=== PATIENT | female | born 2000 | race Two or more races ===

== ENCOUNTER 2023-10-10 16:09 | Inpatient (IN) ==
[2023-10-10 16:30] LABS: BILIRUBIN,URINE NEGATIVE (NEGATIVE); BLOOD/HEMOGLOBIN,URINE 5+ (NEGATIVE); GLUCOSE, URINE NEGATIVE (NEGATIVE); KETONES,URINE NEGATIVE (NEGATIVE); LEUKOCYTE ESTERASE ,URINE 1+ (NEGATIVE); NITRITES,URINE NEGATIVE (NEGATIVE); PROTEIN,URINE 1+ (NEGATIVE); UROBILINOGEN,URINE NORMAL (NORMAL)
[2023-10-10 16:45] LABS: AMNISURE ROM TEST NO MEMBRANES RUPTURE (NO RUPTURE)
[2023-10-10 16:47] LABS: APPEARANCE,URINE SLIGHTLY HAZY (CLEAR); BACTERIA,URINE TRACE /HPF (NEGATIVE); COLOR,URINE YELLOW (YELLOW); SQUAMOUS EPITHELIAL CELL,UR FEW /HPF (NEGATIVE)
[2023-10-10] MEDS ORDERED: ULTANE GAS IN ONE (17:27)
[2023-10-10] MEDS ORDERED: ZOFRAN INJ 4 MG VIAL IVP PRN (17:29)
[2023-10-10] MEDS ORDERED: PITOCIN IVP ONE (17:29)
[2023-10-10] MEDS ORDERED: REGLAN INJ 10 MG VIAL IVP PRN (17:29)
[2023-10-10] MEDS: D5 1/2 NS 1,000 ML 1,000 ML IV SCH (17:40)
[2023-10-10] MEDS: OXYTOCIN 20 UNIT/1,000 ML-NS 20 UNIT/1,000 ML PLAST..BAG IV PRN (17:55)
[2023-10-10 17:58] LABS: BASOPHILS # (AUTO) 0.1 X10^3/uL (0.0-0.1); BASOPHILS % (AUTO) 0.6 % (0.2-1.0); EOSINOPHILS % (AUTO) 0.3 % (0.9-2.9); HEMATOCRIT 36.3 % (36.0-47.0); HEMOGLOBIN 12.3 g/dL (12.0-16.0); LYMPHOCYTES # (AUTO) 2.2 X10^3/uL (1.3-2.9); MEAN CORPUSCULAR HEMOGLOBIN 30.9 pg (27.0-34.0); MEAN CORPUSCULAR HGB CONC 33.8 g/dL (33.0-35.0); MEAN CORPUSCULAR VOLUME 91.5 fL (80.0-100.0); MEAN PLATELET VOLUME 10.7 fL (7.4-11.0); MONOCYTES # (AUTO) 0.8 x10^3/uL (0.3-0.8); MONOCYTES % (AUTO) 6.6 % (0.0-13.0); NEUTROPHILS # (AUTO) 8.5 x10^3/uL (2.2-4.8); NEUTROPHILS % (AUTO) 73.5 % (42.0-75.0); PLATELET COUNT 174 X10^3/uL (150.0-450.0); RED BLOOD COUNT 3.97 X10^6/uL (3.5-5.4); RED CELL DISTRIBUTION WIDTH 13.6 % (11.6-16.5); WHITE BLOOD COUNT 11.6 X10^3/uL (3.6-10.0)
[2023-10-10 18:04] LABS: BLOOD UREA NITROGEN 6 mg/dL (7-18); CALCIUM 8.8 mg/dL (8.5-10.1); CARBON DIOXIDE 21.8 mmol/L (21-32); CHLORIDE 102 mmol/L (98-107); CREATININE 0.77 mg/dL (0.55-1.02); GLUCOSE 82 mg/dL (65-99); POTASSIUM 3.9 mmol/L (3.5-5.1); SODIUM 134 mmol/L (136-145); eGFR NON BLACK RACES > 60 (>60)
[2023-10-10 18:35] LABS: RAPID PLASMA REAGIN NONREACTIVE (NONREACTIVE)
[2023-10-10] MEDS: PITOCIN ONE (18:44)
[2023-10-10] MEDS: D5 1/2 NS 1,000 ML 1,000 ML IV ONE (18:44)
[2023-10-10] MEDS: NUBAIN INJ 10 MG AMP ONE (22:51)
[2023-10-10] MEDS: NUBAIN INJ 20 MG AMP IVP PRN (22:52)
[2023-10-11] MEDS: D5 1/2 NS 1,000 ML 1,000 ML IV ONE (01:50)
[2023-10-11] MEDS: NUBAIN INJ 10 MG AMP ONE (02:57)
[2023-10-11] MEDS: NOZIN NASAL SANITIZER TP ONE (05:50)
[2023-10-11] MEDS: LR 1,000 ML IV 1,000 ML IV ONE ×2 (05:50→06:45)
[2023-10-11] MEDS: DILAUDID INJ ONE (05:51)
[2023-10-11] MEDS: NS 100 ML IV 100 ML ONE (05:59)
[2023-10-11] MEDS: ANCEF VIAL 1 GRAM ONE (05:59)
[2023-10-11] MEDS: PEPCID 20 MG VIAL ONE (06:01)
[2023-10-11] MEDS: ZOFRAN INJ 4 MG VIAL ONE (06:01)
[2023-10-11] MEDS: DIPRIVAN VIAL 20 ML ONE (06:23)
[2023-10-11] MEDS: MARCAINE SPINAL ONE (06:23)
[2023-10-11] MEDS: ZEMURON 100 MG VIAL ONE (06:23)
[2023-10-11] MEDS: XYLOCAINE 2 % (PLAIN) ONE (06:23)
[2023-10-11] MEDS: PITOCIN ONE ×2 (06:33)
[2023-10-11] MEDS: HEMABATE IM ONE (06:55)
[2023-10-11] MEDS: VERSED ONE (07:05)
[2023-10-11] MEDS ORDERED: MOTRIN TAB 800 MG PO PRN (07:14)
[2023-10-11] MEDS ORDERED: BENADRYL INJ 50 MG VIAL IVP PRN (07:20)
[2023-10-11] MEDS ORDERED: ZOFRAN INJ 4 MG VIAL IVP PRN ×2 (07:20→14:25)
[2023-10-11] MEDS ORDERED: DILAUDID INJ IVP PRN (07:20)
[2023-10-11] MEDS ORDERED: MORPHINE SULFATE INJ 4 MG IM ONE (07:58)
[2023-10-11] MEDS ORDERED: NARCAN INJ IVP PRN ×2 (07:59)
[2023-10-11] MEDS ORDERED: MYLICON TAB 80 MG CHEW PO PRN (07:59)
[2023-10-11] MEDS ORDERED: PERCOCET TAB 5/325 MG PO PRN (07:59)
[2023-10-11] MEDS ORDERED: ZOFRAN INJ 4 MG VIAL IVP SCH (07:59)
[2023-10-11] MEDS: OXYTOCIN 20 UNIT/1,000 ML-NS 20 UNIT/1,000 ML PLAST..BAG IV SCH (08:11)
[2023-10-11] MEDS: TORADOL 30 MG VIAL IVP PRN (08:13)
[2023-10-11] MEDS: MORPHINE SULFATE INJ 4 MG IM PRN (08:30)
[2023-10-11] MEDS: METHERGINE IM PRN (08:50)
[2023-10-11] MEDS: PERCOCET TAB 5/325 MG PO PRN (08:50)
[2023-10-11] MEDS: NS 100 ML IV 100 ML with VENOFER 400 MG IV NR (10:18)
[2023-10-11] MEDS: PRENATAL PLUS PO SCH (14:28)
[2023-10-11] MEDS ORDERED: ADACEL or BOOSTRIX TDaP VACCINE IM ONE (16:49)
[2023-10-11] MEDS: ADACEL or BOOSTRIX TDaP VACCINE IM ONE (17:05)
--- NOTE | 2023-10-11 21:13 | EKG ---
Test Reason : elevated heart rate Blood Pressure : */* mmHG Vent. Rate : 123 BPM Atrial Rate : 123 BPM P-R Int : 140 ms QRS Dur : 68 ms QT Int : 296 ms P-R-T Axes : 48 42 7 degrees QTc Int : 423 ms Sinus tachycardia Nonspecific ST and T wave abnormality Abnormal ECG No previous ECGs available Confirmed by Rob Marinelli ([id number]) on 10/12/2023 7:43:21 AM Referred By: Confirmed By: Rob Marinelli
[2023-10-11 21:54] LABS: RED CELL DISTRIBUTION WIDTH 13.8 % (11.6-16.5)
[2023-10-11 21:58] LABS: BASOPHILS % (AUTO) 0.3 % (0.2-1.0); EOSINOPHILS % (AUTO) 0.2 % (0.9-2.9); LYMPHOCYTES # (AUTO) 1.5 X10^3/uL (1.3-2.9); LYMPHOCYTES % (AUTO) 11.7 % (21.0-51.0); MEAN CORPUSCULAR HEMOGLOBIN 31.2 pg (27.0-34.0); MEAN CORPUSCULAR HGB CONC 33.8 g/dL (33.0-35.0); MEAN CORPUSCULAR VOLUME 92.3 fL (80.0-100.0); MEAN PLATELET VOLUME 10.3 fL (7.4-11.0); MONOCYTES # (AUTO) 0.9 x10^3/uL (0.3-0.8); MONOCYTES % (AUTO) 7.4 % (0.0-13.0); NEUTROPHILS % (AUTO) 80.4 % (42.0-75.0); PLATELET COUNT 149 X10^3/uL (150.0-450.0); RED BLOOD COUNT 1.96 X10^6/uL (3.5-5.4); WHITE BLOOD COUNT 12.5 X10^3/uL (3.6-10.0)
[2023-10-11 22:05] LABS: HEMATOCRIT 18.1 % (36.0-47.0); HEMOGLOBIN 6.1 g/dL (12.0-16.0)
[2023-10-11 22:09] LABS: ALANINE AMINOTRANSFERASE 14 Units/L (12-78); ALBUMIN 1.4 g/dL (3.4-5.0); ALKALINE PHOSPHATASE 220 Units/L (46-116); ASPARTATE AMINO TRANSFERASE 22 Units/L (15-37); BLOOD UREA NITROGEN 7 mg/dL (7-18); CARBON DIOXIDE 22.3 mmol/L (21-32); CHLORIDE 103 mmol/L (98-107); COR CA(FOR HYPOALB) 10.1 mg/dL (8.5-10.1); CREATININE 0.97 mg/dL (0.55-1.02); GLUCOSE 105 mg/dL (65-99); SODIUM 135 mmol/L (136-145); TOTAL PROTEIN 4.8 g/dL (6.4-8.2); eGFR NON BLACK RACES > 60 (>60)
[2023-10-11] MEDS: NS 1,000 ML IV 1,000 ML IV SCH (22:46)
--- NOTE | 2023-10-11 23:06 | NOTE.PROBC ---
Progress Note OB-C/S Date Date of Exam: 10/11/23 Subjective Data Subjective: Called by nursing to see patient due to sustained HR 130-140. Minimal bleeding. Objective Data 10/11/23 21:38 10/11/23 21:38 Objective Data: CV= RRR no MRG Lungs=CTA Bilaterally Abd=(+) BS, soft, ND, appropriately tender near incision. Bandage intact. Fundus deep, below umbilicus. Ext= No edema, NT, No Cords. Graduated Compression Stockings/Sequential Compression Devices Bilaterally. Palms and cheeks appear josé miguel. Assessment Assessment: Tachycardia. Check CBC, CMP. Make sure SCDs are worn while in bed. Discussed whether she is upset, or hurting. Appears tearful. Had some pain and was recently medicated with Percocet x 2. Plan (1) Anemia, : Plan: Transfuse 2 units pRBC, and add iron to existing PNV tomorrow. Orders given. Monitor bleeding, and Hb/Hct.
[2023-10-12] MEDS: BENADRYL CAP/TAB 25 MG PO ONE ×2 (00:03→03:54)
[2023-10-12] MEDS: NS 250 ML IV 250 ML IV ONE ×2 (00:29→16:57)
[2023-10-12] MEDS ORDERED: PERCOCET TAB 5/325 MG PO PRN (06:00)
[2023-10-12] MEDS: MOTRIN TAB 800 MG PO PRN (08:17)
[2023-10-12] MEDS: HEMOCYTE-PLUS PO SCH (08:17)
[2023-10-12 09:18] LABS: HEMATOCRIT 26.7 % (36.0-47.0)
--- NOTE | 2023-10-12 09:21 | NOTE.PROBC ---
Progress Note OB-C/S Date Date of Exam: 10/12/23 Subjective Data Subjective: Called this morning that patient only received half of second unit of pRBCs. H&H being done now. RN reports pulse 112. BP low normal. Patient without new complaints, except has not received pain meds since 1:00 am. RN gave ibuprofen recently. Has Percocet ordered. Still with abdominal pain. No SOB, no CP, minimal vaginal bleeding. Objective Data 10/11/23 21:38 10/11/23 21:38 Objective Data: female in no apparent distress. Skin warm and dry. Palms appear pink. CTA BL. Heart RRR, normal S1, S2. Abdomen: soft normal BS. Appropriate tender for POD#1. Bandage intact over incision. Fundus difficult to appreciate due to abdominal body habitus, and also her discomfort with the exam. Extremities normal, no CCE. Mood and affect appropriate to the situation. Assessment Assessment: POD#1, status post section. Post operative anemia. Transfusion of 1.5 units of pRBC done, and will make assessment, currently H&H being drawn. Plan (1) Anemia, : Plan: Assess before continuing transfusion. (2) delivery delivered: Plan: POD#1. Ambulate. DC pastor and bandage. Advance diet, activity and medications.
[2023-10-12] MEDS: CYTOTEC PO SCH (10:47)
[2023-10-12 16:09] LABS: BASOPHILS # (AUTO) 0.1 X10^3/uL (0.0-0.1); BASOPHILS % (AUTO) 0.7 % (0.2-1.0); EOSINOPHILS # (AUTO) 0.1 x10^3/uL (0.0-0.2); EOSINOPHILS % (AUTO) 0.5 % (0.9-2.9); HEMATOCRIT 27.5 % (36.0-47.0); HEMOGLOBIN 9.3 g/dL (12.0-16.0); LYMPHOCYTES # (AUTO) 2.2 X10^3/uL (1.3-2.9); LYMPHOCYTES % (AUTO) 13.9 % (21.0-51.0); MEAN CORPUSCULAR HGB CONC 33.8 g/dL (33.0-35.0); MEAN CORPUSCULAR VOLUME 88.8 fL (80.0-100.0); MEAN PLATELET VOLUME 9.7 fL (7.4-11.0); MONOCYTES # (AUTO) 0.8 x10^3/uL (0.3-0.8); MONOCYTES % (AUTO) 5.2 % (0.0-13.0); NEUTROPHILS # (AUTO) 12.6 x10^3/uL (2.2-4.8); NEUTROPHILS % (AUTO) 79.7 % (42.0-75.0); PLATELET COUNT 168 X10^3/uL (150.0-450.0); RED BLOOD COUNT 3.09 X10^6/uL (3.5-5.4); RED CELL DISTRIBUTION WIDTH 15.8 % (11.6-16.5); WHITE BLOOD COUNT 15.8 X10^3/uL (3.6-10.0)
[2023-10-12] MEDS: BETADINE SOLN ONE (16:57)
[2023-10-12] MEDS: ANCEF VIAL 1 GRAM IVP SCH (21:06)
[2023-10-12] MEDS: BENADRYL INJ 50 MG VIAL IVP PRN (21:23)
[2023-10-13 05:27] LABS: BASOPHILS % (AUTO) 0.2 % (0.2-1.0); EOSINOPHILS # (AUTO) 0.1 x10^3/uL (0.0-0.2); EOSINOPHILS % (AUTO) 0.8 % (0.9-2.9); HEMATOCRIT 25.1 % (36.0-47.0); HEMOGLOBIN 8.5 g/dL (12.0-16.0); LYMPHOCYTES % (AUTO) 18.9 % (21.0-51.0); MEAN CORPUSCULAR HEMOGLOBIN 29.9 pg (27.0-34.0); MEAN CORPUSCULAR HGB CONC 33.8 g/dL (33.0-35.0); MEAN CORPUSCULAR VOLUME 88.5 fL (80.0-100.0); MEAN PLATELET VOLUME 9.9 fL (7.4-11.0); MONOCYTES # (AUTO) 1.2 x10^3/uL (0.3-0.8); MONOCYTES % (AUTO) 7.4 % (0.0-13.0); NEUTROPHILS # (AUTO) 11.7 x10^3/uL (2.2-4.8); NEUTROPHILS % (AUTO) 72.7 % (42.0-75.0); PLATELET COUNT 176 X10^3/uL (150.0-450.0); RED BLOOD COUNT 2.84 X10^6/uL (3.5-5.4)
[2023-10-13 05:42] LABS: ALANINE AMINOTRANSFERASE < 6 Units/L (12-78); ALBUMIN 1.5 g/dL (3.4-5.0); ALKALINE PHOSPHATASE 201 Units/L (46-116); ASPARTATE AMINO TRANSFERASE 21 Units/L (15-37); BLOOD UREA NITROGEN 10 mg/dL (7-18); CARBON DIOXIDE 24.5 mmol/L (21-32); CHLORIDE 106 mmol/L (98-107); CREATININE 0.82 mg/dL (0.55-1.02); GLUCOSE 72 mg/dL (65-99); POTASSIUM 3.7 mmol/L (3.5-5.1); SODIUM 139 mmol/L (136-145); TOTAL PROTEIN 5.2 g/dL (6.4-8.2); eGFR NON BLACK RACES > 60 (>60)
[2023-10-14 05:20] LABS: BASOPHILS # (AUTO) 0.1 X10^3/uL (0.0-0.1); BASOPHILS % (AUTO) 0.5 % (0.2-1.0); EOSINOPHILS # (AUTO) 0.1 x10^3/uL (0.0-0.2); HEMATOCRIT 25.1 % (36.0-47.0); HEMOGLOBIN 8.5 g/dL (12.0-16.0); LYMPHOCYTES # (AUTO) 2.7 X10^3/uL (1.3-2.9); LYMPHOCYTES % (AUTO) 18.7 % (21.0-51.0); MEAN CORPUSCULAR HEMOGLOBIN 30.2 pg (27.0-34.0); MEAN CORPUSCULAR HGB CONC 33.7 g/dL (33.0-35.0); MEAN CORPUSCULAR VOLUME 89.7 fL (80.0-100.0); MEAN PLATELET VOLUME 9.3 fL (7.4-11.0); MONOCYTES % (AUTO) 6.7 % (0.0-13.0); NEUTROPHILS # (AUTO) 10.4 x10^3/uL (2.2-4.8); NEUTROPHILS % (AUTO) 73.1 % (42.0-75.0); PLATELET COUNT 223 X10^3/uL (150.0-450.0); RED CELL DISTRIBUTION WIDTH 15.4 % (11.6-16.5); WHITE BLOOD COUNT 14.3 X10^3/uL (3.6-10.0)
[2023-10-14 07:59] VITALS: RESP 22; O2SAT 98
[2023-10-14 11:57] VITALS: BP 123/87; PULSE 101; TEMP 98.4
--- NOTE | 2023-10-15 09:01 | NOTE.PROBC ---
Progress Note OB-C/S Date Date of Exam: 10/14/23 Subjective Data Subjective: POD #3, status post section. Doing well. Ambulating without difficulty. No SOB, No CP. Passing gas. Tolerating diet. Questions about certificate. Objective Data 10/14/23 04:40 10/13/23 05:01 Objective Data: female in NAD. CTA B/L. RRR. Abdomen: soft nontender. Incision clean, dry and intact. Extremities: no CCE. Assessment Assessment: POD#3, status post section. Anemia, status post transfusion. Stable Hct, and ready for discharge. Plan (1) Anemia, : (2) delivery delivered:
--- NOTE | 2023-10-15 09:31 | NOTE.PROBC ---
Progress Note OB-C/S Date Date of Exam: 10/13/23 Subjective Data Subjective: No new complaints. Feeling better today. Passing gas. Minimal lochia. No CP, no SOB. Objective Data 10/14/23 04:40 10/13/23 05:01 Objective Data: NAD. CTA B/L. RRR. Abdomen soft, nontender. Fundus, down. Extremities: no CCE. Incision: bandage intact. Perineum: scant blood on peripad. Assessment Assessment: POD#2 status post section. Anemia, status post transfusion. Following Hct. Plan (1) Anemia, : (2) delivery delivered:
--- NOTE | 2023-10-15 11:43 | W.DIS.FURT ---
Summary of Discharge Discharge Summary of Date Date of Exam: 10/14/23 Admission Date Date of Admission: 10/11/23 Admission Diagnosis Hospital Course: Patient was delivered by section Saturday due to CPD. Following that she was noted to have sustained tachycardia, and work up revealed post op anemia. She received 2 units pRBC on Saturday morning. Tachycardia had some resolution, and on POD#3 her hematocrit remained stable. She is discharged on Iron, Percocet and Ibuprofen which was sent to the pharmacy in [place]. Vital Signs: Vital Signs (72 hours) 10/11/23 07:07 10/11/23 07:12 10/11/23 07:17 Temperature 97 F L Pulse Rate 106 H 94 H 93 H Pulse Rate [Radial] Respiratory Rate 18 18 18 Blood Pressure 144/88 145/71 138/86 Blood Pressure [Left Arm] O2 Sat by Pulse Oximetry 100 100 100 Oxygen Delivery Method Nasal Cannula Nasal Cannula Nasal Cannula Oxygen Flow Rate 10/11/23 07:22 10/11/23 07:27 10/11/23 07:32 Temperature Pulse Rate 85 83 81 Pulse Rate [Radial] Respiratory Rate 18 17 17 Blood Pressure 142/71 131/62 138/65 Blood Pressure [Left Arm] O2 Sat by Pulse Oximetry 99 100 99 Oxygen Delivery Method Nasal Cannula Nasal Cannula Nasal Cannula Oxygen Flow Rate 10/11/23 07:37 10/11/23 07:42 10/11/23 08:13 Temperature Pulse Rate 102 H 80 Pulse Rate [Radial] Respiratory Rate 17 16 16 Blood Pressure 139/65 130/63 Blood Pressure [Left Arm] O2 Sat by Pulse Oximetry 100 99 Oxygen Delivery Method Nasal Cannula Nasal Cannula Oxygen Flow Rate 10/11/23 08:30 10/11/23 08:50 10/11/23 12:30 Temperature Pulse Rate Pulse Rate [Radial] Respiratory Rate 22 22 18 Blood Pressure Blood Pressure [Left Arm] O2 Sat by Pulse Oximetry Oxygen Delivery Method Oxygen Flow Rate 10/11/23 08:00 10/11/23 08:43 10/11/23 09:00 Temperature Pulse Rate Pulse Rate [Radial] Respiratory Rate 20 20 Blood Pressure Blood Pressure [Left Arm] O2 Sat by Pulse Oximetry Oxygen Delivery Method Nasal Cannula Oxygen Flow Rate 2 10/11/23 09:50 10/11/23 08:00 10/11/23 08:15 Temperature 97.7 F 97.7 F Pulse Rate 117 H 112 H Pulse Rate [Radial] Respiratory Rate 20 22 20 Blood Pressure 134/99 114/76 Blood Pressure [Left Arm] O2 Sat by Pulse Oximetry Oxygen Delivery Method Oxygen Flow Rate 10/11/23 08:30 10/11/23 08:45 10/11/23 09:00 Temperature 97.7 F 97.7 F 97.7 F Pulse Rate 89 114 H 105 H Pulse Rate [Radial] Respiratory Rate 20 20 20 Blood Pressure 126/69 117/71 118/79 Blood Pressure [Left Arm] O2 Sat by Pulse Oximetry Oxygen Delivery Method Oxygen Flow Rate 10/11/23 10:00 10/11/23 11:00 10/11/23 12:00 Temperature 97.7 F 97.7 F 97.7 F Pulse Rate 95 H 88 83 Pulse Rate [Radial] Respiratory Rate 20 20 20 Blood Pressure 121/75 141/70 131/64 Blood Pressure [Left Arm] O2 Sat by Pulse Oximetry Oxygen Delivery Method Oxygen Flow Rate 10/11/23 13:00 10/11/23 13:30 10/11/23 16:00 Temperature 97.7 F 98.7 F Pulse Rate 83 Pulse Rate [Radial] 113 H Respiratory Rate 20 18 21 Blood Pressure 131/64 Blood Pressure [Left Arm] 120/70 O2 Sat by Pulse Oximetry 99 Oxygen Delivery Method Nasal Cannula Oxygen Flow Rate 2 10/11/23 19:37 10/11/23 19:00 10/11/23 20:00 Temperature 98.7 F Pulse Rate Pulse Rate [Radial] 120 H Respiratory Rate 18 20 Blood Pressure Blood Pressure [Left Arm] 113/61 O2 Sat by Pulse Oximetry 100 Oxygen Delivery Method Nasal Cannula Nasal Cannula Oxygen Flow Rate 2 2 10/11/23 20:37 10/11/23 23:37 10/12/23 00:27 Temperature 98.7 F Pulse Rate Pulse Rate [Radial] 127 H Respiratory Rate 18 20 19 Blood Pressure Blood Pressure [Left Arm] 115/56 O2 Sat by Pulse Oximetry 100 Oxygen Delivery Method Room Air Oxygen Flow Rate 10/12/23 01:27 10/12/23 04:00 10/12/23 08:17 Temperature 98.0 F Pulse Rate Pulse Rate [Radial] 119 H Respiratory Rate 18 20 20 Blood Pressure Blood Pressure [Left Arm] 99/55 O2 Sat by Pulse Oximetry 100 Oxygen Delivery Method Nasal Cannula Oxygen Flow Rate 2 10/12/23 09:34 10/12/23 07:00 10/12/23 08:00 Temperature 98.7 F Pulse Rate Pulse Rate [Radial] 102 H Respiratory Rate 20 21 Blood Pressure Blood Pressure [Left Arm] 109/56 O2 Sat by Pulse Oximetry 100 Oxygen Delivery Method Nasal Cannula Nasal Cannula Oxygen Flow Rate 2 2 10/12/23 12:00 10/12/23 16:00 10/12/23 19:44 Temperature 98.3 F 98.3 F 99.9 F H Pulse Rate Pulse Rate [Radial] 108 H 108 H 121 H Respiratory Rate 21 21 22 Blood Pressure Blood Pressure [Left Arm] 111/60 111/60 117/57 O2 Sat by Pulse Oximetry 93 L 93 L 97 Oxygen Delivery Method Nasal Cannula Room Air Room Air Oxygen Flow Rate 2 10/12/23 20:12 10/12/23 19:00 10/12/23 21:12 Temperature Pulse Rate Pulse Rate [Radial] Respiratory Rate 20 18 Blood Pressure Blood Pressure [Left Arm] O2 Sat by Pulse Oximetry Oxygen Delivery Method Room Air Oxygen Flow Rate 10/12/23 23:59 10/13/23 04:00 10/13/23 07:00 Temperature 98.1 F 98.1 F Pulse Rate Pulse Rate [Radial] 94 H 94 H Respiratory Rate 18 20 Blood Pressure Blood Pressure [Left Arm] 101/57 99/54 O2 Sat by Pulse Oximetry 96 99 Oxygen Delivery Method Room Air Room Air Room Air Oxygen Flow Rate 10/13/23 08:00 10/13/23 12:00 10/13/23 16:00 Temperature 98.6 F 99.5 F 98.5 F Pulse Rate Pulse Rate [Radial] 110 H 104 H 102 H Respiratory Rate 18 18 18 Blood Pressure Blood Pressure [Left Arm] 112/55 110/57 112/56 O2 Sat by Pulse Oximetry 97 97 97 Oxygen Delivery Method Room Air Room Air Room Air Oxygen Flow Rate 10/13/23 20:00 10/13/23 19:00 10/14/23 00:00 Temperature 98.8 F 98.6 F Pulse Rate Pulse Rate [Radial] 113 H 106 H Respiratory Rate 21 22 Blood Pressure Blood Pressure [Left Arm] 123/60 108/69 O2 Sat by Pulse Oximetry 98 98 Oxygen Delivery Method Room Air Room Air Room Air Oxygen Flow Rate 10/14/23 04:00 Temperature 98.4 F Pulse Rate Pulse Rate [Radial] 104 H Respiratory Rate 19 Blood Pressure Blood Pressure [Left Arm] 120/67 O2 Sat by Pulse Oximetry 99 Oxygen Delivery Method Room Air Oxygen Flow Rate Labs: Laboratory Last Values WBC 14.3 X10^3/uL (3.6-10.0) H 10/14/23 04:40 RBC 2.80 X10^6/uL (3.5-5.4) L 10/14/23 04:40 Hgb 8.5 g/dL (12.0-16.0) L 10/14/23 04:40 Hct 25.1 % (36.0-47.0) L 10/14/23 04:40 MCV 89.7 fL (80.0-100.0) 10/14/23 04:40 MCH 30.2 pg (27.0-34.0) 10/14/23 04:40 MCHC 33.7 g/dL (33.0-35.0) 10/14/23 04:40 RDW 15.4 % (11.6-16.5) 10/14/23 04:40 Plt Count 223 X10^3/uL (150.0-450.0) 10/14/23 04:40 MPV 9.3 fL (7.4-11.0) 10/14/23 04:40 Neut % (Auto) 73.1 % (42.0-75.0) 10/14/23 04:40 Lymph % (Auto) 18.7 % (21.0-51.0) L 10/14/23 04:40 [place] % (Auto) 6.7 % (0.0-13.0) 10/14/23 04:40 Eos % (Auto) 1.0 % (0.9-2.9) 10/14/23 04:40 Baso % (Auto) 0.5 % (0.2-1.0) 10/14/23 04:40 Neut # (Auto) 10.4 x10^3/uL (2.2-4.8) H 10/14/23 04:40 Lymph # (Auto) 2.7 X10^3/uL (1.3-2.9) 10/14/23 04:40 [place] # (Auto) 1.0 x10^3/uL (0.3-0.8) H 10/14/23 04:40 Eos # (Auto) 0.1 x10^3/uL (0.0-0.2) 10/14/23 04:40 Baso # (Auto) 0.1 X10^3/uL (0.0-0.1) 10/14/23 04:40 Absolute Nucleated RBC 0.6 /100WBC 10/14/23 04:40 Sodium 139 mmol/L (136-145) 10/13/23 05:01 Corrected Sodium TNP 10/13/23 05:01 Potassium 3.7 mmol/L (3.5-5.1) 10/13/23 05:01 Chloride 106 mmol/L (98-107) 10/13/23 05:01 Carbon Dioxide 24.5 mmol/L (21-32) 10/13/23 05:01 BUN 10 mg/dL (7-18) 10/13/23 05:01 Creatinine 0.82 mg/dL (0.55-1.02) 10/13/23 05:01 Est GFR (MDRD) Af Amer > 60 (>60) 10/13/23 05:01 Est GFR (MDRD) Non-Af > 60 (>60) 10/13/23 05:01 Glucose 72 mg/dL (65-99) 10/13/23 05:01 Calcium 8.0 mg/dL (8.5-10.1) L 10/13/23 05:01 Corrected Calcium 10.0 mg/dL (8.5-10.1) 10/13/23 05:01 Iron 354 ug/dL (50-175) H 10/11/23 23:11 Total Bilirubin 0.20 mg/dL (0.2-1.0) 10/13/23 05:01 AST 21 Units/L (15-37) 10/13/23 05:01 ALT < 6 Units/L (12-78) L 10/13/23 05:01 Alkaline Phosphatase 201 Units/L (46-116) H 10/13/23 05:01 Total Protein 5.2 g/dL (6.4-8.2) L 10/13/23 05:01 Albumin 1.5 g/dL (3.4-5.0) L 10/13/23 05:01 Globulin 3.7 g/dL (2.5-4.5) 10/13/23 05:01 Albumin/Globulin Ratio 0.4 Ratio (1.1-2.1) L 10/13/23 05:01 Specimen Type Clean catch urine 10/10/23 16:19 Urine Color Yellow (YELLOW) 10/10/23 16:19 Urine Appearance Slightly hazy (CLEAR) 10/10/23 16:19 Urine pH 7.0 (5.0 - 8.0) 10/10/23 16:19 Ur Specific [place] 1.015 (1.000-1.030) 10/10/23 16:19 Urine Protein 1+ (NEGATIVE) 10/10/23 16:19 Urine Glucose (UA) Negative (NEGATIVE) 10/10/23 16:19 Urine Ketones Negative (NEGATIVE) 10/10/23 16:19 Urine Blood 5+ (NEGATIVE) 10/10/23 16:19 Urine Nitrite Negative (NEGATIVE) 10/10/23 16:19 Urine Bilirubin Negative (NEGATIVE) 10/10/23 16:19 Urine Urobilinogen Normal (NORMAL) 10/10/23 16:19 Ur Leukocyte Esterase 1+ (NEGATIVE) 10/10/23 16:19 Urine RBC 3-5 /HPF (0-3) A 10/10/23 16:19 Urine WBC 5-10 /HPF (0-5) A 10/10/23 16:19 Ur Squamous Epith Cells Few /HPF (NEGATIVE) 10/10/23 16:19 Urine Bacteria Trace /HPF (NEGATIVE) 10/10/23 16:19 Ur Culture Indicated? No/not indicated 10/10/23 16:19 Placental [id number] No membranes rupture (NO RUPTURE) 10/10/23 16:19 RPR Nonreactive (NONREACTIVE) 10/10/23 17:42 HIV 1&2 Antibody Non reactive (NONREACTIVE) 10/10/23 17:42 HIV P24 Antigen Non reactive (NONREACTIVE) 10/10/23 17:42 Blood Type O POSITIVE 10/10/23 17:46 Antibody Screen Negative 10/10/23 17:42 Crossmatch See Detail 10/10/23 17:42 Reason For Visit: Labor Discharge Diagnosis All Active Problems (Updated 10/12/23 @ 09:19 by Carmen Rivera) delivery delivered (Acute) Anemia, (Acute) Plan of Treatment: Continue with present treatment and follow up plan. Pt is to keep follow up appointment as instructed and take medications as ordered. Discharge Medications Discharge Medications: No Known Allergies Allergy (Verified 10/10/23 16:22) CONTINUE taking the following medications vit no.95-ferrous fumarate 28 mg-folic acid 800 mcg tablet () 1 tab PO QDAY 10/10/23 [History] New Prescriptions B [id number] 106 mg iron-1 mg tablet (Ferrocite Plus) 1 tab PO DAILY #30 tabs 10/13/23 [Rx] ibuprofen 800 mg tablet 800 mg PO Q8H PRN #30 tabs 10/13/23 [Rx] oxycodone-acetaminophen 5 mg-325 mg tablet 1 tab PO Q4H PRN pain 7 days #28 tabs 10/13/23 [Rx] Discharge Disposition Assessment: 23 Year old, status post , POD#3 doing well. Post op anemia, likely due to uterine atony. Discharge Plan Discharge Plan Hospital Course: Patient was delivered by section Saturday morning due to CPD. Following that she was noted to have sustained tachycardia, and work up revealed post op anemia. She received 2 units pRBC on Saturday morning. Tachycardia had some resolution, and on POD#3 her hematocrit remained stable. She is discharged on Iron, Percocet and Ibuprofen which was sent to the pharmacy in [place]. Patient Disposition: HOME, SELF-CARE Condition: Stable Health Concerns: Post Hospitalization: new medications and changes needed to prevent readmission or further decline. Pt educated and given instructions on all concerns. Care Plan Goals: Keep incision check and post op follow up with your doctor on Saturday. Call in the morning for an appointment. Plan of Treatment: Continue with present treatment and follow up plan. Pt is to keep follow up appointment as instructed and take medications as ordered. Assessment: 23 Year old, status post , POD#3 doing well. Post op anemia, likely due to uterine atony. Prescription drug monitoring program results: PDMP was not reviewed Prescriptions: New ibuprofen 800 mg Tablet 800 mg PO Q8H PRNQty: 30 1RF oxycodone-acetaminophen 5-325 mg Tablet 1 tab PO Q4H MDD 4 PRN (Reason: pain) 7 Days Qty: 28 0RF Rx Instructions: Take 1 tablet by mouth every 4 hours as needed for pain. Ferrocite Plus 106 mg iron- 1 mg Tablet 1 tab PO DAILY Qty: 30 1RF No Action PNV cmb#95-ferrous fumarate-FA [] 28 mg iron- 800 mcg Tablet 1 tab PO QDAY Follow ups/Referrals Follow ups/Referrals: JAYY WILSON [Primary Care Provider] - 10/17/23 9:50 am Instructions Instructions: Anemia, Delivery, Care After, Delivery Stand Alone Forms: Excuse From Work or School, Post Hospital Follow Up Care
== END 2023-10-14 12:00 | disposition home or self-care (01) | DRG 788 ==
LOC: ER 16:09 → LD 17:27 → MED/SURG 10-11 07:27
PROVIDERS: ADMIT Obstetrics & Gynecology Obstetrics; ATTEND Obstetrics & Gynecology Obstetrics
DX: O26.893 Other specified pregnancy related conditions, third trimester; O62.0 Primary inadequate contractions; R00.1 Bradycardia, unspecified; O65.8 Obstructed labor due to other maternal pelvic abnormalities; O90.81 Anemia of the puerperium; Z3A.41 41 weeks gestation of pregnancy; R94.31 Abnormal electrocardiogram [ECG] [EKG]; Z37.0 Single live birth